=== PATIENT | female | born 1995 | race Caucasian/White ===

== ENCOUNTER 2024-10-14 12:53 | Emergency (ER) | payer BC, SELFPAY ==
[2024-10-14 13:03] VITALS: BP 132/90
--- NOTE | 2024-10-14 14:59 | ED.GENMED ---
History of Present Illness
General
Chief Complaint: Skin Problem
Time Seen by Provider: 10/14/24 14:33
History of Present Illness
History of Present Illness:
29-year-old female without significant past medical history presenting to the emergency department for skin rash. Patient reports that the rash started about a week ago in her right inner thigh. The rash is itchy and has since spread to her left
inner thigh, stomach, chest. She does note that she has been itching the rash. She believes it started after she was in in the park, unsure if she ran into any suspicious bushes or leaves. Denies fever. Denies difficulty breathing or feeling of
throat closure. Denies vomiting. Denies additional acute medical complaints
Phy Exam
Physical Exam
Physical Exam:
General: Well-appearing, no clinical signs of dehydration, nontoxic and in no acute distress
HEENT: protecting airway
Neck: appears supple
CV: Normal heart rate, regular rhythm
Resp: No accessory muscle use, no increased work of breathing, lungs clear to auscultation bilaterally
Abd: No distention
Extremities: No deformities, no swelling
Neuro: alert, no focal neurologic deficit
: deferred
Rectal: deferred
Psych: Normal affect
Skin: Diffuse erythematous rash, indistinct patches, with raised bumpy component. Most concentrated bilateral inner thighs, with scattered component to abdomen and chest
Course
Orders/Labs/Results
Orders:
Orders
10/14/24 14:53
Prednisone [Deltasone] 50 mg PO NOW STA
Vital Signs
Initial and Last Documented VS:
Initial Vital Signs
Temp Pulse Resp BP Pulse Ox
98.4 F 87 16 132/90 98
10/14/24 13:03 10/14/24 13:03 10/14/24 13:03 10/14/24 13:03 10/14/24 13:03
Last Documented Vital Signs
Temp Pulse Resp BP Pulse Ox
98.4 F 87 16 132/90 98
10/14/24 13:03 10/14/24 13:03 10/14/24 13:03 10/14/24 13:03 10/14/24 13:03
MDM/Problems Addressed
MDM/Problems Addressed:
29-year-old female presenting for itchy rash. Vital signs are normal
On exam patient is resting comfortably, no acute distress. Patient's rash appears consistent with a contact dermatitis, suspected from poison max-like plant. Does not appear to be allergic. No present concern for anaphylaxis. Given diffuse
nature of rash, and presents from last week, will start on oral steroids. Feel stable for discharge. Return precautions discussed
*Pulse Oximetry
SaO2: 98
Oxygen Mode of Delivery: Room air
Patient hypoxic: no
*Critical Care Note
Total Time (30-74mins, 75-104mins- exclusive of procedures): Not Applicable
ED Attending Note
-
Portions of this chart may have been created with voice recognition software.� Occasional wrong word or��sound alike� substitutions may have occurred due to the inherent limitations of voice recognition software.
Discharge Plan
Departure
Patient Disposition: Home (Routine Discharge)
Date of Disposition: 10/14/24
Time of Disposition: 15:07
Patient with high blood pressure during this ER visit?: No
Condition: Good
Discharge Problem:
Contact dermatitis, Poison max dermatitis
Instructions: Poison max, poison oak, and poison sumac, Contact dermatitis
Prescriptions:
New
prednisone 10 mg Tablet
See Rx Instructions .ROUTE .COMPLEX Qty: 45 0RF
Rx Instructions:
Take By Mouth:
50 mg daily x3 days, 40 mg daily x3 days,
30 mg daily x3 days, 20 mg daily x3 days,
10 mg daily x3 days
Activity Restrictions/Additional Instructions:
You were seen in the emergency department for rash
You are suspected to have a contact dermatitis, likely from poison max. You were started on oral steroids. You can also use calamine lotion for topical relief
Please follow-up closely with your primary care physician.
Return to the emergency department for any worsening of your symptoms, or any development of chest pain, difficulty breathing, abdominal pain with persistent vomiting and inability to tolerate food or liquid by mouth (concern for dehydration),
weakness, headache or confusion, fever greater than 100.4, or any additional symptoms that are concerning to you.
Thank you for choosing [facility].
Interventions
Interventions:
*Risk Screen - Suicide Last Done: 10/14/24 13:03
*Neglect/Abuse Screening Last Done: 10/14/24 13:03
Discharge Date and Time
Print Language: PASHTO
[2024-10-14 15:06] VITALS: BMI 38.8
[2024-10-14] MEDS: DELTASONE 50 MG PO (15:16)
== END 2024-10-14 15:22 | disposition home or self-care (01) ==
LOC: EMR 12:53
PROVIDERS: EMERGENCY PHYSICIAN Student in an Organized Health Care Education/Training Program; FAMILY PHYSICIAN Physician Assistant Medical
DX: L23.7 Allergic contact dermatitis due to plants, except food (principal)
CPT/HCPCS: 99283